=== PATIENT | female | born 1960 | race Caucasian/White ===

== ENCOUNTER 2018-06-04 18:58 | Emergency (ER) | payer MEDICAID ==
[2018-06-04] MEDS: HYDROCODONE/APAP (5/325) TAB PO (20:53)
[2018-06-04] MEDS: KETOROLAC 30 MG INJ IM (20:54)
[2018-06-04] MEDS: metFORMIN 500 MG TAB PO (21:10)
== END 2018-06-04 22:29 | disposition home or self-care (01) ==
LOC: FTE 18:58
DX: S43.102A Unspecified dislocation of left acromioclavicular joint, initial encounter (principal); E11.65 Type 2 diabetes mellitus with hyperglycemia; X58.XXXA Exposure to other specified factors, initial encounter; Y92.9 Unspecified place or not applicable; Z76.0 Encounter for issue of repeat prescription; Z79.84 Long term (current) use of oral hypoglycemic drugs
CPT/HCPCS: 73030; 73030-RT; 82962; 96372; 99284-25